=== PATIENT | male | born 1990 | race Caucasian/White ===

== ENCOUNTER 2017-03-25 23:37 | Emergency (ER) | payer OTHER ==
[2017-03-26] MEDS ORDERED: ACETAMINOPHEN 325 MG TABLET PO ONE (01:45)
[2017-03-26] MEDS ORDERED: NORMAL SALINE 1000 ML 2,000 ML IV ONE (01:56)
[2017-03-26] MEDS ORDERED: DIPHENHYDRAMINE HCL 50 MG/ML VIAL IV ONE (01:56)
[2017-03-26] MEDS ORDERED: PROCHLORPERAZINE EDISYLATE INJ 10 MG/2 ML VIAL IV ONE (01:57)
[2017-03-26] MEDS ORDERED: KETOROLAC TROMETHAMINE INJ/PF 30 MG/1 ML SDV IV ONE (01:57)
--- NOTE | 2017-03-26 01:58 | ER Document Report ---
ED Headache - General Chief Complaint: Headache <24 hrs old Stated Complaint: HEADACHE Time Seen by Provider: 03/26/17 01:45 Mode of Arrival: Medic Information source: Patient Notes: 27 yo nrmally juanty frequent marijuana smoker that is living with a friend in [place] called EMS due to headache and vomiting while trying to get back to his home in [place]. He was nausated and vomited twice on and tue. he felt fine. Tuesday he slept until 4 pm, woke up and started vomiting again. Gradual onset of frontal/bilateral temporal headache started about an hour ago. Hx migraines as teenage. Generalized abdominal discomfort. No fever, diarrhea, chest pain, sob, dizziness, vertigo, dysuria, flank pain, penis or scrotal pain. TRAVEL OUTSIDE OF THE [place] IN LAST 30 DAYS: No - Related Data Allergies/Adverse Reactions: amoxicillin Allergy (Mild, Verified 03/26/17 00:25) Past Medical History - General Information source: Patient, Parent - dad met him here and is in the room - Social History Smoking Status: Never Smoker Frequency of alcohol use: None Drug Abuse: Marijuana - several years frequent Occupation: unemployed Lives with: Friend - in [place] Family History: Other - mom- anxiety Psychiatric Medical History: Reports: Hx Anxiety Other: insomnia- used to take Remeron but ran out. Has counselor in [place]. Surgical Hx: Negative Review of Systems - Review of Systems Constitutional: See HPI EENT: No symptoms reported Cardiovascular: No symptoms reported Respiratory: No symptoms reported Gastrointestinal: See HPI Genitourinary: No symptoms reported Male Genitourinary: No symptoms reported Musculoskeletal: No symptoms reported Skin: No symptoms reported Hematologic/Lymphatic: No symptoms reported Neurological/Psychological: See HPI Physical Exam - Vital signs Vitals: Temp Pulse Resp BP Pulse Ox 98 F 67 18 139/76 H 100 03/26/17 00:18 03/26/17 00:18 03/26/17 00:18 03/26/17 00:18 03/26/17 00:18 Interpretation: Normal - Notes Notes: agitated, pale, looks deydrated - General General appearance: Anxious In distress: Mild - agitated, dry heaving - HEENT Head: Normocephalic, Atraumatic Eyes: Normal Conjunctiva: Injected Pupils: PERRL Tympanic membrane: Normal Mucous membranes: Dry Pharynx: Normal Neck: Supple. No: Lymphadenopathy Notes: no meningismus - Respiratory Respiratory status: No respiratory distress Chest status: Nontender Breath sounds: Normal Chest palpation: Normal - Cardiovascular Rhythm: Regular Heart sounds: Normal auscultation Murmur: No - Abdominal Inspection: Normal Distension: No distension Bowel sounds: Normal Tenderness: Tender - mild RLQ, tense throughout Organomegaly: No organomegaly - Back Back: Normal, Nontender. No: CVA tenderness - Extremities General upper extremity: Normal inspection, Nontender, Normal color, Normal ROM , Normal temperature General lower extremity: Normal inspection, Nontender, Normal color, Normal ROM , Normal temperature, Normal weight bearing. No: Mc's sign - Neurological Neuro grossly intact: Yes Cognition: Normal Orientation: AAOx4 [place] Coma Scale Eye Opening: Spontaneous [place] Coma Scale Verbal: Oriented [place] Coma Scale Motor: Obeys Commands [place] Coma Scale Total: 15 Speech: Normal Motor strength normal: LUE, RUE, LLE, RLE Sensory: Normal - Psychological Associated symptoms: Agitated - Skin Skin Temperature: Warm Skin Moisture: Dry Skin Color: Normal Skin irregularity: negative: Rash Course - Re-evaluation Re-evalutation: 03/26/17 03:34 headache 0. no nausea or vomiting. abdomen non tender at this time. co2 16, 2nd liter NS hung. 03/26/17 04:00 able to keep oral fluids down. No headache of abdominal pain. vitals stable. Will send home with followup anad return precautions. 03/26/17 12:40 called pt to check on him, no headache or abd. pain, just mild "queezy". Able to hydrate at home. - Vital Signs Vital signs: Temp Pulse Resp BP Pulse Ox 97.1 F 83 18 132/79 H 97 03/26/17 04:18 03/26/17 04:18 03/26/17 04:18 03/26/17 04:18 03/26/17 04:18 - Laboratory Result Diagrams: 03/26/17 02:25 03/26/17 02:25 Laboratory results interpreted by me: 03/26/17 03/26/17 03/26/17 02:25 02:25 03:20 WBC 14.5 H Seg Neutrophils % 83.0 H Lymphocytes % 10.5 L Absolute Neutrophils 12.1 H Chloride 110 H Carbon Dioxide 16 L Urine Protein 100 H Urine Ketones 20 H Ur Leukocyte Esterase TRACE H Discharge - Discharge Clinical Impression: Dehydration, Marijuana abuse Vomiting Qualifiers: Vomiting type: unspecified Vomiting Intractability: non-intractable Nausea presence: with nausea Qualified Code(s): R11.2 - Nausea with vomiting, unspecified Headache Qualifiers: Headache type: unspecified Headache chronicity pattern: acute headache Intractability: not intractable Qualified Code(s): R51 - Headache Condition: Good Disposition: HOME, SELF-CARE Instructions: Antinausea Medication ([facility]), Intravenous Compazine for Headaches ([facility]), Use of Diphenhydramine, Intravenous (IV) Fluids ([facility]), Vomiting ([facility]) Additional Instructions: continue to hydrate with plenty of oral fluids stop the marijuana use see your counselor about medication adjustments for the insomnia, anxiety return for recheck immediately if the abdominal pain recurs see dr traore for follow up and possible referral to neurologist if the headaches recur copy of labwork given to you for your follow up's Referrals: FLEX TRAORE MD [Primary Care Provider] - Follow up as needed
[2017-03-26 02:41] LABS: ABSOLUTE LYMPHOCYTES (AUTO) 1.5 10^3/uL (0.5-4.7); ABSOLUTE MONOCYTES (AUTO) 0.9 10^3/uL (0.1-1.4); ABSOLUTE NEUT (AUTO) 12.1 10^3/uL (1.7-8.2); BASOPHILS % (AUTO) 0.2 % (0-2); EOSINOPHILS % (AUTO) 0.2 % (0-6); HEMATOCRIT 43.9 % (37.9-51.0); HEMOGLOBIN 15.2 g/dL (13.5-17.0); HGB HCT DIFFERENCE 1.7; LYMPHOCYTES % (AUTO) 10.5 % (13-45); MEAN CORPUSCULAR HEMOGLOBIN 31.2 pg (27.0-33.4); MEAN CORPUSCULAR HGB CONC 34.7 g/dL (32.0-36.0); MEAN CORPUSCULAR VOLUME 90 fl (80-97); MONOCYTES % (AUTO) 6.1 % (3-13); RED BLOOD COUNT 4.88 10^6/uL (4.35-5.55); RED CELL DISTRIBUTION WIDTH 12.7 % (11.5-14.0); WHITE BLOOD COUNT 14.5 10^3/uL (4.0-10.5)
[2017-03-26 02:50] LABS: ALANINE AMINOTRANSFERASE 37 U/L (21-72); ALBUMIN 4.9 g/dL (3.5-5.0); ALKALINE PHOSPHATASE 47 U/L (38-126); ASPARTATE AMINO TRANSFERASE 25 U/L (17-59); BILIRUBIN,DIRECT 0.3 mg/dL (0.0-0.4); BLOOD UREA NITROGEN 15 mg/dL (7-20); CARBON DIOXIDE 16 mmol/L (22-30); CHLORIDE 110 mmol/L (98-107); CREATININE RESULT 0.91 mg/dL (0.52-1.25); GLUCOSE 109 mg/dL (75-110); POTASSIUM 3.7 mmol/L (3.6-5.0); TOTAL PROTEIN 7.7 g/dL (6.3-8.2)
[2017-03-26 03:02] LABS: ANION GAP 18 (5-19); SODIUM 144.2 mmol/L (137-145)
[2017-03-26 03:33] LABS: AMORPHOUS SEDIMENT,URINE TRACE /HPF; APPEARANCE,URINE TURBID; BILIRUBIN,URINE NEGATIVE (NEGATIVE); GLUCOSE, URINE NEGATIVE (NEGATIVE); KETONES,URINE 20 mg/dL (NEGATIVE); LEUKOCYTE ESTERASE,URINE TRACE (NEGATIVE); NITRITE,URINE NEGATIVE (NEGATIVE); PROTEIN,URINE 100 mg/dL (NEGATIVE); URINE SPECIFIC GRAVITY 1.029; UROBILINOGEN,URINE NEGATIVE mg/dL (<2.0)
[2017-03-26 03:50] LABS: URINE BARBITURATES SCREEN NEGATIVE; URINE METHADONE SCREEN NEGATIVE; URINE OPIATES LOW NEGATIVE; URINE PHENCYCLIDINE SCREEN NEGATIVE
[2017-03-26] MEDS ORDERED: ONDANSETRON ODT 4 MG TAB (6 TAB/DSPK) PO PRN (04:07)
[2017-03-26 04:22] VITALS: BP 132/79
== END 2017-03-26 04:21 | disposition home or self-care (01) ==
LOC: ER 23:37
DX: E86.0 Dehydration (principal); F12.10 Cannabis abuse, uncomplicated; R51 Headache; R11.2 Nausea with vomiting, unspecified; Z88.0 Allergy status to penicillin
CPT/HCPCS: 99284; 96361; 96374; 96375; 36415; 85025; 80053; 81001; 80307; J1200; J1885; J0780; J7030